=== PATIENT | female | born 1965 | race Caucasian/White ===

== ENCOUNTER → 2016-09-24 | Outpatient (CLI) | payer BC ==
[2016-09-24 10:51] LABS: ALBUMIN 4.2 g/dL (3.4-5.0); ANION GAP 15.3 MEQ/L (3-15); CALCULATED IONIZED CALCIUM 4.3 mg/dL (3.8-4.6); TOTAL PROTEIN 7.4 g/dL (6.4-8.5)
== END ==
LOC: RAD 09:56
PROVIDERS: ATTEND Hospitalist
DX: Z12.31 Encounter for screening mammogram for malignant neoplasm of breast (principal); Z13.220 Encounter for screening for lipoid disorders
CPT/HCPCS: 36415; 80053; 80061; G0202

== ENCOUNTER → 2016-12-30 | Outpatient (CLI) | payer BC ==
[~2016-12-30] MED LIST: PRED20TA PO
[2016-12-30 16:31] VITALS: BP 134/77
--- NOTE | 2016-12-30 16:32 | Urgent Care T Sheet Gen (E) ---
Intake General Temperature (Fahrenheit): 98.7 Pulse: 73 Blood Pressure Systolic: 134 Blood Pressure Diastolic: 77 Respirations: 20 SPO2: 97 Description of Symptoms Patient presents with R foot pain which started 1 week ago. Notes pain with walking, worse with the first steps of the day. No injury. Foot feels swollen. Has been taking ibuprofen throughout the day. Changed shoes. No history of similar symptoms. States she sits at work however once she is home, she is very active. Sees Dr Eason on January 12. Respiratory Constitutional Symptoms: No syptoms reported EENTM: No symptoms reported Respiratory: No symptoms reported Cardiovascular: No symptoms reported Musculoskeletal: Joint pain Muscle pain All Other Systems Reviewed Remaining Systems: All other systems reviewed with negative findings Physical Exam Physical Exam General Appearance: WD/WN No apparent distress Skin Exam: Normal color Warm/dry/intact Extremity Exam: Swelling Other (examination of the R foot reveals pain along the plantar aspect, worse along the heel. arch is very tender to palpation. dorsiflexion of the ankle causes pain in the foot. foot also appears swollen. no pain with movement of met heads. mild pain along the lateral foot.) Neurologic/Psychiatric Exam: No motor deficits No sensory deficits Departure Urgent Care Impression Impression: Primary Impression: Plantar fasciitis of right foot Departure Disposition: 01 HOME OR SELF-CARE Condition: Stable Referrals: Jocy Perez (PCP) Additional Instructions: Keep appt with Dr Eason. In the meantime, I have started her on a tapering dose of Prednisone. No NSAIDs while on steroid Encouraged heel stretches and rolling her foot over a cold can. Patient understands DC instructions. All questions were answered. Scripts Prednisone 20 Mg [id number] Mg PO DAILY #10 TAB 40mg po x 3 days then 20mg daily x 4 days Prov:MARIANELA LANG 12/30/16 End of report . MARIANELA LANG December 30, 2016 16:31
== END ==
LOC: MHUC 15:50
PROVIDERS: ATTEND Physician Assistant
DX: M72.2 Plantar fascial fibromatosis (principal)
CPT/HCPCS: 99213